=== PATIENT | male | born 1960 | race Caucasian/White ===

== ENCOUNTER 2019-09-19 13:07 | Emergency (ER) | payer BC, MEDICAID ==
[2019-09-19] MEDS ORDERED: Sodium Chloride 0.9% 1,000 ML IV ONE (13:30)
[2019-09-19 14:00] LABS: CHLORIDE,CL 103 mEq/L (98-106); SODIUM,NA 142 mEq/L (136-145)
--- NOTE | 2019-09-19 19:03 | EDM.PDOC ---
ED HPI GENERAL MEDICAL PROBLEM - General Chief Complaint: General Stated Complaint: weak, back pain, jaundice Time Seen by Provider: 09/19/19 13:20 Source of Information: Reports: Patient, Family (daughter), Old Records History Limitations: Reports: No Limitations - History of Present Illness INITIAL COMMENTS - FREE TEXT/NARRATIVE: Mariano is a 59 yo male who is brought into the ED by his daughter with concerns of weakness, unable to eat, and back pain. His daughter states she last seen him on and was very boucher in color. She admits she went to see him today and his skin is now yellow. Mariano states he has been doctoring in [place] and they told him the only thing they diagnosed him with was COPD, however , he does have paperwork with him from [place] and [facility] that states he has masses in his liver. He doesn't recall ever being told this. States he has seen the artificial limb fitter. Denies any liver biopsies, PET scans, oncology appointments, etc... Pt states he remembers them saying he had some masses but has not had any following up with it. He states he has been sick for the last few months and has progressively gotten worse since then. Duration: Getting Worse Location: Reports: Generalized Back Pain Score (Numeric/FACES): 10 - Related Data Allergies Allergy/AdvReac Type Severity Reaction Status Date / Time No Known Allergies Allergy Verified 09/19/19 13:15 Home Meds: Home Meds . [No Known Home Meds] 09/19/19 [History] Past Medical History Respiratory History: Reports: COPD - Past Surgical History Other Surgical History Comment: No prior surgical history Social & Family History - Family History Family Medical History: Noncontributory - Tobacco Use Smoking Status *Q: Current Every Day Smoker Years of Tobacco use: 40 Packs/Tins Daily: 1 - Caffeine Use Caffeine Use: Reports: None - Recreational Drug Use Recreational Drug Use: No ED ROS GENERAL - Review of Systems Review Of Systems: See Below Constitutional: Reports: Malaise, Weakness, Fatigue, Decreased Appetite, Weight Loss. Denies: Fever, Chills HEENT: Reports: No Symptoms Respiratory: Reports: No Symptoms Cardiovascular: Reports: Dyspnea on Exertion, Lightheadedness. Denies: Chest Pain, Palpitations, Syncope GI/Abdominal: Reports: Abdominal Pain, Diarrhea, Decreased Appetite, Distension , Nausea. Denies: Constipation, Hematochezia, Melena, Vomiting : Reports: No Symptoms Musculoskeletal: Reports: Back Pain Skin: Reports: Jaundice, Pallor Neurological: Reports: No Symptoms Psychiatric: Reports: No Symptoms ED EXAM, GENERAL - Physical Exam Exam: See Below Exam Limited By: No Limitations General Appearance: Alert, Lethargic, Thin Eye Exam: Bilateral Eye: Other (scleral icterus) Ears: Normal External Exam, Normal Canal, Hearing Grossly Normal, Normal TMs Nose: Normal Inspection, Normal Mucosa, No Blood Throat/Mouth: Normal Voice, No Airway Compromise, Other (dry oral mucosa) Head: Atraumatic, Normocephalic Neck: Normal Inspection, Supple, Non-Tender Respiratory/Chest: No Respiratory Distress, Lungs Clear, Normal Breath Sounds, No Accessory Muscle Use Cardiovascular: Regular Rate, Rhythm, No Murmur, Other (trace bilateral pedal edema) Peripheral Pulses: 2+: Posterior Tibial (L), Posterior Tibial (R), Dorsalis Pedis (L), Dorsalis Pedis (R) GI/Abdominal: Pelvis Stable, Distended, Tender, Hepatomegaly Rectal (Males) Exam: Heme + Stool Neurological: Alert, Oriented, CN II-XII Intact, Normal Cognition, No Motor/ Sensory Deficits Psychiatric: Normal Affect, Normal Mood Skin Exam: Jaundice, Pallor Course - Vital Signs Last Recorded V/S: Last Vital Signs Temp 99.4 F 09/19/19 14:40 Pulse 105 H 09/19/19 14:40 Resp 18 09/19/19 14:40 BP 129/62 09/19/19 14:40 Pulse Ox 95 09/19/19 14:40 - Orders/Labs/Meds Labs: Laboratory Tests 09/19/19 09/19/19 09/19/19 Range/Units 13:28 13:28 13:28 WBC 12.0 H (5.0-10.0) 10^3/uL Corrected WBC 10.7 H (5.0-10.0) 10^3/uL RBC 1.64 L (4.50-6.00) 10^6/uL Hgb 5.4 L* (14.0-18.0) g/dL Hct 16.9 L* (40.0-54.0) % MCV 103.0 H (82.0-94.0) fL MCH 32.9 H (27.0-32.0) pg MCHC 32.0 L (33.0-38.0) g/dL RDW Coeff of Wiliam 23.6 H (11.0-15.0) % Plt Count 27 L* (150-400) 10^3/uL MPV Cancelled Add Manual Diff Yes Neutrophils % (Manual) 45 (35-85) % Band Neutrophils % 18 H (0-5) % Lymphocytes % (Manual) 23 (21-55) % Monocytes % (Manual) 5 (2-12) % Eosinophils % (Manual) 4 (0-5) % Myelocytes % 5 % Nucleated RBCs 12 H (0-5) /100WBC Sodium 142 (136-145) mEq/L Potassium 3.7 (3.5-5.0) mEq/L Chloride 103 (98-106) mEq/L Carbon Dioxide 24 (21-32) mmol/L BUN 28 H (7-18) mg/dL Creatinine 0.9 (0.7-1.3) mg/dL Est Cr Clr Drug Dosing 97.00 mL/min Estimated GFR (MDRD) > 60 (>=60) mL/min Glucose 182 H (75-99) mg/dL Lactic Acid 1.8 (0.4-2.0) mmol/L Calcium 9.2 (8.4-10.1) mg/dL Total Bilirubin 11.3 H (0.0-1.0) mg/dL AST 431 H* (15-37) U/L ALT 567 H* (12-78) U/L Alkaline Phosphatase 1057 H (46-116) U/L C-Reactive Protein 2.6 H (0.2-0.8) mg/dL Total Protein 5.8 L (6.4-8.2) g/dL Albumin 2.1 L (3.4-5.0) g/dL Amylase 394 H (25-115) U/L Lipase 7625 H (73-393) U/L Blood Type Gel Antibody Screen Crossmatch 09/19/19 Range/Units 14:02 WBC (5.0-10.0) 10^3/uL Corrected WBC (5.0-10.0) 10^3/uL RBC (4.50-6.00) 10^6/uL Hgb (14.0-18.0) g/dL Hct (40.0-54.0) % MCV (82.0-94.0) fL MCH (27.0-32.0) pg MCHC (33.0-38.0) g/dL RDW Coeff of Wiliam (11.0-15.0) % Plt Count (150-400) 10^3/uL MPV Add Manual Diff Neutrophils % (Manual) (35-85) % Band Neutrophils % (0-5) % Lymphocytes % (Manual) (21-55) % Monocytes % (Manual) (2-12) % Eosinophils % (Manual) (0-5) % Myelocytes % % Nucleated RBCs (0-5) /100WBC Sodium (136-145) mEq/L Potassium (3.5-5.0) mEq/L Chloride (98-106) mEq/L Carbon Dioxide (21-32) mmol/L BUN (7-18) mg/dL Creatinine (0.7-1.3) mg/dL Est Cr Clr Drug Dosing mL/min Estimated GFR (MDRD) (>=60) mL/min Glucose (75-99) mg/dL Lactic Acid (0.4-2.0) mmol/L Calcium (8.4-10.1) mg/dL Total Bilirubin (0.0-1.0) mg/dL AST (15-37) U/L ALT (12-78) U/L Alkaline Phosphatase (46-116) U/L C-Reactive Protein (0.2-0.8) mg/dL Total Protein (6.4-8.2) g/dL Albumin (3.4-5.0) g/dL Amylase (25-115) U/L Lipase (73-393) U/L Blood Type A POSITIVE Gel Antibody Screen Negative Crossmatch See Detail Meds: Medications Discontinued Medications Generic Name Dose Route Start Last Admin Trade Name Freq PRN Reason Stop Dose Admin Sodium Chloride 1,000 mls @ 999 mls/hr 09/19/19 13:30 09/19/19 13:53 Normal Saline IV 09/19/19 14:30 999 mls/hr .BOLUS ONE Administration Departure - Departure Time of Disposition: 15:00 Disposition: DC/Tfer to Acute Hospital 02 Condition: Serious Clinical Impression: Obstructive jaundice, Liver masses GI bleed Qualifiers: GI bleed type/associated pathology: unspecified gastrointestinal hemorrhage type Qualified Code(s): K92.2 - Gastrointestinal hemorrhage, unspecified - Discharge Information Referrals: PCP,None [Primary Care Provider] - - Problem List & Annotations (1) GI bleed SNOMED Code(s): 56657205 Code(s): K92.2 - GASTROINTESTINAL HEMORRHAGE, UNSPECIFIED Status: Acute Qualifiers: GI bleed type/associated pathology: unspecified gastrointestinal hemorrhage type Qualified Code(s): K92.2 - Gastrointestinal hemorrhage, unspecified (2) Liver masses SNOMED Code(s): 396988086 Code(s): R16.0 - HEPATOMEGALY, NOT ELSEWHERE CLASSIFIED Status: Acute (3) Obstructive jaundice SNOMED Code(s): 96735663 Code(s): K83.1 - OBSTRUCTION OF BILE DUCT Status: Acute - Assessment/Plan Plan: Reviewed all previous documentation provided by patient. It appears he had been seen in June and July on a few occasions. Ultrasound results of abdomen d/t concerns of metastatic liver disease. Again, I discussed with patient and he admits he has an appointment on October 17 at [facility] in [place]. He states no one has told him he had liver metastatic disease. He states he was suppose to have a PET scan but no one ever ordered it. He does admit to having a CT scan but doesn't have these results. Declines any further care at [facility] at this time. I discussed into detail with Mariano and his daughter that he is critically ill. Labs reviewed and are critical, see above. Type and cross completed, 1 unit of pRBC's initiated. Patient has likely obstructive jaundice. Patient did have an incontinent stool in ED which was clemente like and heme positive. Consulted with Dr. Townsend, hospitalist at [facility], who did accept transfer. Discussed risks and benefits of transfer. Risks of transfer included MVA, worsening of condition, . Benefits of transfer included appropriate interventions/specialists. Risks of non-transfer included likely worsening of condition leading to . Benefits of non-transfer included staying close to home. I reviewed patient's clinic chart and no previous records in our facility is found.
== END 2019-09-19 15:20 ==
LOC: CC.ED 13:07
DX: R16.0 Hepatomegaly, not elsewhere classified (principal); K83.1 Obstruction of bile duct; K92.2 Gastrointestinal hemorrhage, unspecified; J44.9 Chronic obstructive pulmonary disease, unspecified; F17.210 Nicotine dependence, cigarettes, uncomplicated
CPT/HCPCS: 36415; 36430; 80053; 82150; 82272; 83605; 83690; 85025; 86140; 86850; 86900; 86901; 86920; 86922; 96360; 99285-25; J7030; P9016